=== PATIENT | male | born 1965 | race Caucasian/White ===

== ENCOUNTER 2018-11-03 08:45 | Emergency (ER) | payer MEDICAID ==
[~2018-11-03] VITALS: Ht 180.3 cm; Wt 95.0 kg
[2018-11-03 08:47] VITALS: BP 163/81
== END 2018-11-03 15:28 | disposition left against medical advice (07) ==
LOC: ER 08:55
DX: F15.10 Other stimulant abuse, uncomplicated (principal); J45.909 Unspecified asthma, uncomplicated; I10 Essential (primary) hypertension; F17.200 Nicotine dependence, unspecified, uncomplicated; Z59.0 Homelessness
CPT/HCPCS: 99283